=== PATIENT | male | born 1950 | race Caucasian/White ===

== ENCOUNTER 2019-03-13 02:44 | Inpatient (IN) | payer MEDICARE, OTHER ==
[~2019-03-13] VITALS: Ht 190.7 cm; Wt 98.5 kg
[2019-03-13] VITALS (13 sets, daily range): BP systolic 126–170; BP diastolic 52–86; PULSE 44–97; TEMP 97.3–98.6
[~2019-03-13 02:44] MED LIST: BENICAR PO; METFORMIN500 MG PO; PRILOSEC 20MG20 MG PO; ST. JOSEPH81 M2 PO
[2019-03-13] MEDS ORDERED: LIPITOR 10MG10 MG PO (03:26)
[2019-03-13 03:40] LABS: BASO % 0.4 % (0.0-2.0); EOS # 0.1 (0.0-0.7); GRAN # 2.8 (1.4-6.5); GRAN % 56.2 % (42.2-75.2); HEMATOCRIT 38.2 % (42.0-52.0); HEMOGLOBIN 12.9 g/dl (13.5-18.0); LYMPH # 1.7 (1.2-3.4); LYMPH % 34.2 % (20.0-51.0); MEAN CELL VOLUME 85 fl (80.0-100.0); MEAN CORPUSCULAR HEMOGLOBIN 29 pg (27.0-31.0); MEAN CORPUSCULAR HGB CONC 34 g/dl (33.0-37.0); MEAN PLATELET VOLUME 9.8 fl (7.4-10.4); MONO # 0.3 (0.1-0.6); MONO % 6.8 % (1.7-9.3); PLATELET COUNT 150 K/mm3 (130-400); RED BLOOD COUNT 4.51 M/mm3 (4.20-5.60); REDCELL DISTRIBUTION WIDTH-CV 14.3 % (11.5-14.5)
[2019-03-13 03:53] LABS: BILIRUBIN,TOTAL 0.9 mg/dL (0.0-1.0); CALCIUM 9.3 mg/dL (8.4-10.2); CREATININE, serum 0.93 (0.66-1.25); MAGNESIUM 1.8 mg/dL (1.6-2.3); PHOSPHOROUS 3.6 mg/dL (2.5-4.5); POTASSIUM 3.9 mmol/L (3.4-5.0)
[2019-03-13 04:05] LABS: TROPONIN-I 0.017 ng/mL (0.000-0.035)
[2019-03-13 04:23] LABS: TSH w REFLEX 2.65 uIU/mL (0.465-4.680)
--- NOTE | 2019-03-13 07:09 | NUR ---
Report given to SARIKA Fernando
--- NOTE | 2019-03-13 08:46 | NUR ---
PT RESTING IN BED DENIES ANY PAIN AT THIS TIME, DENIES ANY DIZZINESS OR SOA, AT BEDSIDE, PT REPORTS HE IS NOT HUNGRY AT THIS TIME. VSS. ASSESSMENT WNL. CARDIOLOGY CONSULTED WILL ENSURE MD AWARE AND CONTINUE TO MONITOR PT STATUS AND UPDATED PROVIDERS NEEDED.
--- NOTE | 2019-03-13 10:52 | NUR ---
Initial visit; Patient and his thanked [employer] for looking in on him and offering God's blessings.
--- NOTE | 2019-03-13 14:35 | NUR ---
SW attempted to meet with patient to discuss discharge planning. Patient was getting a stress test. SW will follow up at a later time.
--- NOTE | 2019-03-13 15:53 | NUR ---
SW's met with the patient, patient's (Licha #[phone]), and son (Shaji) to discuss discharge plan. The patient lives in [place] with his . He reports independence with ADLs and does not have any DME. The patient's PCP is Dr. Lamin Chapman and he receives his medications at the [facility]. He reports no difficulties obtaining his meds. The patient does not have advanced directives, but he was interested in obtaining a form for DPOA-HC. JOY provided. The patient plans to return home with his upon discharge. No additional needs at this time.
--- NOTE | 2019-03-13 17:33 | NUR ---
ELVIS, MRI OF HEAD W & W/O COMPLETED
--- NOTE | 2019-03-13 21:30 | NUR ---
Patient assessed at this time. Alert and oriented, and able to make needs known. Denies having pain and discomfort. Denies dizziness and lightheadedness. Peripheral IV to right wrist flushed. Peripheral IV to left wrist with NS running at 125 ml/hr. Both sites are without redness, warmth, swelling, and pain. LS CTA. Respirations even and unlabored. Telemetry monitoring in place. Heart rate irregular. Loop recorder to be placed tomorrow. Denies having any questions, needs, or concerns. NPO after midnight. BSAx4. Abdomen soft and non-tender. No edema. Resting in bed watching TV at this time. Call light is within reach. at bedside.
[2019-03-14] VITALS (16 sets, daily range): BP systolic 117–171; BP diastolic 55–104; PULSE 50–72; TEMP 97.9–98.4
--- NOTE | 2019-03-14 06:06 | NUR ---
Patient has been resting in bed. remains at bedside. Voices no questions, needs, or concerns. Reports dizziness has gotten much better. Call light is within reach.
[2019-03-14 07:00] LABS: BASO % 0.3 % (0.0-2.0); EOS # 0.1 (0.0-0.7); EOS % 0.8 % (0-4.0); GRAN # 4.3 (1.4-6.5); GRAN % 71.7 % (42.2-75.2); HEMATOCRIT 38.8 % (42.0-52.0); HEMOGLOBIN 13.4 g/dl (13.5-18.0); LYMPH # 1.3 (1.2-3.4); LYMPH % 21.1 % (20.0-51.0); MEAN CELL VOLUME 83 fl (80.0-100.0); MEAN CORPUSCULAR HEMOGLOBIN 29 pg (27.0-31.0); MEAN CORPUSCULAR HGB CONC 35 g/dl (33.0-37.0); MEAN PLATELET VOLUME 9.7 fl (7.4-10.4); MONO # 0.4 (0.1-0.6); MONO % 5.8 % (1.7-9.3); PLATELET COUNT 164 K/mm3 (130-400); RED BLOOD COUNT 4.66 M/mm3 (4.20-5.60); REDCELL DISTRIBUTION WIDTH-CV 14.1 % (11.5-14.5)
--- NOTE | 2019-03-14 07:00 | NUR ---
Received report from departing nurse Kortney BAUM. Reported with primary nurse Alysha BAUM. Assisting pt with all cares from [phone].
[2019-03-14 07:35] LABS: CALCIUM 8.9 mg/dL (8.4-10.2); CREATININE, serum 0.8 (0.66-1.25); POTASSIUM 3.9 mmol/L (3.4-5.0)
--- NOTE | 2019-03-14 10:32 | NUR ---
Pt assessment completed and charted. Pt has student nurse caring for pt today. Pt laying in bed with at bedside. Pt A&O. Denies dizziness and SOB at this time. pt gets up w/ assistance. LWR INT flushes with no complications. RWR IV w/ NS running with no complications. Denies chest pain, N/V/D. Pt insisting on taking own medications. Discussed with pharmacy, if pt stays, will have medications labeled by pharmacy. No other concerns voiced by patient at this time. Call light within reach.
--- NOTE | 2019-03-14 12:27 | NUR ---
Pt down for heart cath procedure at this time.
--- NOTE | 2019-03-14 12:57 | NUR ---
SEE MERGE DOCUMENTATION FOR MEDICATION ADMINISTRATION TIMES AND INTRA/POST PROCEDURE SEDATION ASSESSMENTS.
--- NOTE | 2019-03-14 13:43 | NUR ---
Reported off with primary nurse Alysha BAUM.
--- NOTE | 2019-03-14 13:56 | NUR ---
Primary nurse was assisted with [phone] patient care by [facility] [employer] student Cain Prince and [facility] instructor Hoda Bush RN-BC.
--- NOTE | 2019-03-14 14:35 | NUR ---
Admitted to ICU 8 via bed from analytical lab technician with RNx2 at side. Awake and alert. Right groin dressing CDI, did have significant hematoma in CL, lateral edge of dressing/incision site sl firm and CL RN states it's improved after holding pressure, medial edge soft. Pulses present, but feet cool to touch. at bedside. Call light at side, denies needs at this time
--- NOTE | 2019-03-14 14:35 | NUR ---
Patient arrives to ICU 8 via bed from Student Counsellor with RNx2 at bedside. Awake and alert, answers questions appropriately. Log rolls to right side for positioning and skin check. Right femoral groin check done with Shweta Connor RN, dressing CDI, did develop hematoma in CL after Angioseal deployed, site sl firm on lateral edge but RN states much improved after manual pressure and massage. Medial side soft, non tender. Will continue to monitor
--- NOTE | 2019-03-14 14:45 | NUR ---
Pt transferred to ICU at this time. Pt with hematoma to right groin following angioseal deployment. Pressure held by live truck technician per MD order. Site stable with hematoma borders marked prior to transfer out of bed laborer. DP pulses +2 on right foot. On arrival to ICU 8, VS monitors connected. VS's WNL limits. Bedside handoff with SARIKA Russell. Right groin site assessed. No change noted to site. Dressing remains dry and intact. No increase in size or characteristics of hematoma. DP pulse remains +2. Pt denies pain or numbness to right leg/foot. All questions answered at this time.
--- NOTE | 2019-03-14 14:54 | NUR ---
Pt transferred to ICU 8 post heart cath procedure. Belongings taken to room in ICU. SARIKA Russell to call for report.
--- NOTE | 2019-03-14 19:55 | NUR ---
Bedside report given to Betsy BAUM. Site checked with on coming RN, lateral edge firmness improved, now only slightly firm but bruising noted to that area. Patient denies needs at this time.
--- NOTE | 2019-03-14 19:55 | NUR ---
Bedside report received from SARIKA Russell. Cath site assessed and remains soft. There is a large bruise forming from hematoma post-procedure.
--- NOTE | 2019-03-14 20:00 | NUR ---
Patient is awake, alert, and oriented x4 watching tv. Patient's at the bedside. Patient has no complaints of pain other than mild headache from the nitro drip. Patient is not requesting any medications for this. Assessment complete. Lungs are clear bilaterally in all vargas. HR is irregular, patient is in sinus dysrhythmia with PAC's, PJC's, and PVC's. Normal S1 and S2 heard. Bowel sounds are active in all quadrants and patient is passing gas. Pulses are strong and palpable in all extremities. Patient has no further needs at this time. Will continue to monitor. Call light within reach.
--- NOTE | 2019-03-14 20:10 | NUR ---
Patient has complaints of nausea at this time. Zofran provided.
[2019-03-15] VITALS: BP 119/78; PULSE 63; TEMP 98.1
--- NOTE | 2019-03-15 | NUR ---
Patient asleep at this time but awakens to name. Vitals obtained and remain stable. Assessment complete with no changes from previous exam. Cath site assessed, remains soft and nontender. Patient has no complaints of pain. Will continue to monitor. Call light within reach.
[2019-03-15 04:00] VITALS: BP 141/68; PULSE 63; TEMP 97.8
[2019-03-15 05:41] LABS: BASO % 0.1 % (0.0-2.0); EOS % 0.4 % (0-4.0); GRAN # 5.7 (1.4-6.5); GRAN % 72.9 % (42.2-75.2); HEMOGLOBIN 12.4 g/dl (13.5-18.0); LYMPH # 1.5 (1.2-3.4); LYMPH % 18.6 % (20.0-51.0); MEAN CELL VOLUME 84 fl (80.0-100.0); MEAN CORPUSCULAR HEMOGLOBIN 29 pg (27.0-31.0); MEAN CORPUSCULAR HGB CONC 35 g/dl (33.0-37.0); MEAN PLATELET VOLUME 9.6 fl (7.4-10.4); MONO # 0.6 (0.1-0.6); MONO % 7.6 % (1.7-9.3); PLATELET COUNT 152 K/mm3 (130-400); RED BLOOD COUNT 4.27 M/mm3 (4.20-5.60); REDCELL DISTRIBUTION WIDTH-CV 14.3 % (11.5-14.5)
[2019-03-15 05:42] LABS: HEMATOCRIT 35.9 % (42.0-52.0)
[2019-03-15 05:54] LABS: CALCIUM 8.5 mg/dL (8.4-10.2); CREATININE, serum 0.81 (0.66-1.25); POTASSIUM 3.8 mmol/L (3.4-5.0)
--- NOTE | 2019-03-15 05:56 | NUR ---
Patient sleeping, but awakens to name. No complaints of pain, just some tenderness when cath site is touched. Cath site remains clean and dry with no hematoma. Vitals obtained and remain stable. Assessment complete with no changes from previous exam. Patient has no further needs at this time. Will continue to monitor. Call light within reach.
--- NOTE | 2019-03-15 07:10 | NUR ---
Bedside report given to SARIKA Negro and Stas RN
[2019-03-15 08:00] VITALS: BP 135/82; BP 141/70; PULSE 52; TEMP 97.8
--- NOTE | 2019-03-15 10:04 | NUR ---
Assisted to sitting. Tolerates without issue. Reports mild nausea and headache. Tylenol given.
[2019-03-15] MEDS ORDERED: LIPITOR 80MG80 MG PO (11:13)
[2019-03-15] MEDS ORDERED: PLAVIX 75MG TAB75 MG PO (11:13)
[2019-03-15] MEDS ORDERED: TOPROL XL 25MG25 MG PO (11:14)
[2019-03-15] MEDS ORDERED: NITROSTAT0.4 MG/TAB SL (11:15)
--- NOTE | 2019-03-15 11:26 | NUR ---
The patients was present. We talked and I provided spiritual care and prayed with the family.
--- NOTE | 2019-03-15 14:00 | NUR ---
All discharge instructions reviewed and questions addressed. Pt and accompanied to POV. Packet provided. Belongings returned.
--- NOTE | 2019-03-15 17:04 | NUR ---
Plan:To return home with [phone]. Patient also wants his oldest son Shaji De La Rosa on [phone]. Patient resides in [facility]. SM reports that he has a DPOA form to fill out later. Patient reports that will transport him home. Assess:SW's met with patient with present. Patient gave permission to discuss information in front of . SM denied utilizing DME, however reports that he is going to recieve a heart monitor in the mail. Patient reports that his PCP is Dr. Mcleod, and he does not have any upcoming appointments. Patient denies a need for HHC. Action:No additional concerns identified. Patient was educated about community resources and supports.
== END 2019-03-15 14:03 | disposition home or self-care (01) | DRG 251 ==
LOC: COL.ER 02:44 → MEDICAL 04:29 → ICU 03-14 14:51
PROVIDERS: Emergency Medicine; Physician Assistant
PROC: 02703ZZ Dilation of Coronary Artery, One Artery, Percutaneous Approach (ICD-10-PCS; principal; 2019-03-14)
PROC: 4A023N7 Measurement of Cardiac Sampling and Pressure, Left Heart, Percutaneous Approach (ICD-10-PCS; 2019-03-14)
PROC: B2111ZZ Fluoroscopy of Multiple Coronary Arteries using Low Osmolar Contrast (ICD-10-PCS; 2019-03-14)
DX: I25.10 Atherosclerotic heart disease of native coronary artery without angina pectoris (principal); I25.82 Chronic total occlusion of coronary artery; I10 Essential (primary) hypertension; R00.8 Other abnormalities of heart beat; D64.9 Anemia, unspecified; E11.42 Type 2 diabetes mellitus with diabetic polyneuropathy; E78.5 Hyperlipidemia, unspecified; K21.9 Gastro-esophageal reflux disease without esophagitis; R42 Dizziness and giddiness; Z79.82 Long term (current) use of aspirin; Z79.84 Long term (current) use of oral hypoglycemic drugs
CPT/HCPCS: 99232-AI; A9500; A9585; G0378; J0583; J1644; J2250; J2785; J3010; J7030; Q9967

== ENCOUNTER 2019-03-16 11:51 | Emergency (ER) | payer OTHER ==
[~2019-03-16] VITALS: Ht 190.5 cm; Wt 97.7 kg
[~2019-03-16 11:51] MED LIST changes: +LIPITOR 10MG10 MG PO; +LIPITOR 80MG80 MG PO; +NITROSTAT0.4 MG/TAB SL; +PLAVIX 75MG TAB75 MG PO; +TOPROL XL 25MG25 MG PO
[2019-03-16 12:05] VITALS: BP 142/79; TEMP 98.4
[2019-03-16 12:49] VITALS: PULSE 50
== END 2019-03-16 12:50 | disposition home or self-care (01) ==
LOC: COL.ER 11:51
DX: S30.1XXA Contusion of abdominal wall, initial encounter (principal); Z79.02 Long term (current) use of antithrombotics/antiplatelets; I25.10 Atherosclerotic heart disease of native coronary artery without angina pectoris; Z79.82 Long term (current) use of aspirin

== ENCOUNTER 2019-06-11 15:29 | Outpatient (RCR) | payer OTHER | END 2019-06-13 12:23 | disposition home or self-care (01) | LOC: COL.CR 15:29 | DX: Z48.812 Encounter for surgical aftercare following surgery on the circulatory system (principal); Z95.5 Presence of coronary angioplasty implant and graft; I25.10 Atherosclerotic heart disease of native coronary artery without angina pectoris ==

== ENCOUNTER 2019-08-18 11:41 | Outpatient (RCR) | payer SELFPAY | END 2019-09-09 | disposition home or self-care (01) | LOC: COL.CR | DX: Z02.89 Encounter for other administrative examinations (principal) ==

== ENCOUNTER 2021-06-03 06:31 | Day surgery (SDC) | payer OTHER ==
[~2021-06-03] VITALS: Ht 190.5 cm; Wt 98.3 kg
[2021-06-03] MEDS ORDERED: ELIQUIS 5MG PO (06:53)
[2021-06-03] MEDS ORDERED: ASPIRIN 81M81 MG/TA2 PO (06:54)
[2021-06-03] MEDS ORDERED: LIPITOR 80MG80 MG PO (06:54)
[2021-06-03] MEDS ORDERED: TOPROL XL 25MG25 MG PO (06:54)
[2021-06-03] MEDS ORDERED: PEPCID 20MG TAB20 MG PO (06:55)
[2021-06-03 07:09] VITALS: BP 124/86; PULSE 61; TEMP 96.9
[2021-06-03 08:10] VITALS: BP 101/58; PULSE 69
--- NOTE | 2021-06-03 08:10 | NUR ---
Patient returns to bay 3 per cart and is awake and alert. Transfers from cart to recliner with one person assist. IV fluids infusing. Spouse in room. Denies pain or nausea. Given coffee to drink.
[2021-06-03 08:25] VITALS: BP 101/77; PULSE 60
--- NOTE | 2021-06-03 08:25 | NUR ---
Sipping on coffee and denies nausea.
[2021-06-03 08:40] VITALS: BP 113/73; PULSE 69
--- NOTE | 2021-06-03 08:40 | NUR ---
IV discontinued and site is free of redness. Dr. Boogie here and all questions answered.
--- NOTE | 2021-06-03 08:50 | NUR ---
Patient dressed. Given dismissal instructions and voices understanding of these. Patient dismissed to home driven by spouse and taken to the front door per wheelchair and assisted into vehicle with instructions in hand.
== END 2021-06-03 08:50 | disposition home or self-care (01) ==
LOC: SDCO 06:31
DX: Z12.11 Encounter for screening for malignant neoplasm of colon (principal); Z80.0 Family history of malignant neoplasm of digestive organs; K57.30 Diverticulosis of large intestine without perforation or abscess without bleeding; E78.5 Hyperlipidemia, unspecified; I25.10 Atherosclerotic heart disease of native coronary artery without angina pectoris; I10 Essential (primary) hypertension; I48.91 Unspecified atrial fibrillation; Z79.899 Other long term (current) drug therapy; Z79.01 Long term (current) use of anticoagulants; Z79.82 Long term (current) use of aspirin; Z95.818 Presence of other cardiac implants and grafts
CPT/HCPCS: G0105; J2704; J7030

== ENCOUNTER 2021-08-08 09:18 | Inpatient (IN) | payer OTHER, MEDICARE ==
[~2021-08-08] VITALS: Ht 190.7 cm; Wt 100.0 kg
[~2021-08-08 09:18] MED LIST changes: +ASPIRIN 81M81 MG/TA2 PO; +ELIQUIS 5MG PO; +PEPCID 20MG TAB20 MG PO
[2021-08-30] VITALS (12 sets, daily range): BP systolic 99–133; BP diastolic 58–81; PULSE 56–88; TEMP 97.4–98.6
--- NOTE | 2021-08-30 11:20 | NUR ---
PATIENT ADMITED INTO ROOM 349 POST OP. A&O. VSS. DENIES PAIN OR N/V. PATIENT ONLY REPORTS PRESSURE AT DARNELL. DARNELL TO DD WITH PINK COLORED URINE NOTED, NO CLOTS. IV FLUIDS INFUSING INTO LEFT WRIST. ERAS PROTOCOL, EDUCATION GIVEN TO PATIENT & . ABD LAP SITES X6 ARE WELL APPROXIMATED WITH GLUED CLOSURE. ABD IS SLIGHTLY DISTENDED POST OP. HYPO BOWL SOUNDS. HEAD TO TOE ASSESSMENT COMPLETE. SCD'S TO BLE. ORIENTED TO ROOM. CALL LIGHT IN REACH.
--- NOTE | 2021-08-30 21:15 | NUR ---
Pt. sitting up in bed. PT. is A&Ox3, assessment complete. IV to lt. wrist patent. IV fluid infusing per orders. amdaor catheter to DD, clear jerel urine noted. Pt. denies pain or other needs, call light within reach.
[2021-08-31 04:13] VITALS: BP 92/50; PULSE 63; TEMP 98.3
[2021-08-31 06:24] LABS: HEMATOCRIT 33.9 % (42.0-52.0)
[2021-08-31 06:40] VITALS: BP 96/54; PULSE 70; TEMP 98.4
[2021-08-31 06:56] LABS: CALCIUM 7.8 mg/dL (8.4-10.2); CREATININE, serum 0.88 mg/dL (0.72-1.25); POTASSIUM 4.1 mmol/L (3.5-4.5)
--- NOTE | 2021-08-31 07:25 | NUR ---
IVF RESTARTED, HAD BEEN SALINE LOCKED OVERNIGHT. PT IN LAYING IN BED, HAS NOT BEEN UP YET. PT STATES THAT HE DOES NOT HAVE PAIN EXCEPT FOR MILD GAS PAINS, HAS BEEN PASSING GAS. PT IS ENCOURAGED TO WALK, GETS OUT OF BED WITH 1 ASSIST, WALKS TO DOOR ET BACK TO CHAIR. PT'S GAIT IS UNSTEADY ET SLOW, PT STATES THAT HE FEELS "WOOZY". DARNELL CATHETER DRAINING YELLOW URINE. PT DENIES OTHER NEEDS. CALL LIGHT WITHIN REACH.
--- NOTE | 2021-08-31 09:19 | NUR ---
Odd Piece Checker met with patient to discuss discharge planning. Patient's , Licha (ph#[phone]) is at bedside. Patient lives in [place] with Licha and sees Dr. Chapman for primary care. Patient obtains medications from [facility] [address] with no difficulties. Patient does not use any DME and is independent with ADLS. Patient states he has completed DPOA-HC which designates his Licha then his two sons, Jose F and Ashish. Patient plans to return home at time of discharge. Discharge Plan: Home
[2021-08-31 10:45] VITALS: BP 100/57; PULSE 71; TEMP 97.9
--- NOTE | 2021-08-31 10:58 | NUR ---
First visit from the workers compensation attorney. No needs right now.
[2021-08-31 16:08] VITALS: BP 116/52; PULSE 67; TEMP 98.1
--- NOTE | 2021-08-31 18:17 | NUR ---
PT'S CONDITION IMPROVED FROM THIS MORNING, PT DENIES FEELING LIGHTHEADED OR "WOOZY", DENIES NAUSEA OR PAIN. IVF INFUSING ET RATE HAS BEEN DECREASED TO 60 ML/HR PER ORDERS. IVF ARE ORDERED TO RUN CONTINUOUSLY. SPOUSE IS @ BEDSIDE. PT IS ASSISTED TO AMBULATE WITH 2 ASSIST ET GAITBELT. GAIT IS SLOW BUT STEADY. PT AMBULATES TO NURSES STATION ET BACK TO ROOM. PT IS ENCOURAGED TO AMBULATE MORE DURING NIGHT WHILE AWAKE, VERBALIZES UNDERSTANDING. PT DENIES OTHER NEEDS. CALL LIGHT WITHIN REACH.
[2021-08-31 19:52] VITALS: BP 104/66; PULSE 75; TEMP 97.3
--- NOTE | 2021-08-31 20:09 | NUR ---
PT AWAKE, ALERT AND ORIENTED X4. HAS IVF INFUSING TO LT WRIST WITHOUT REDNESS OR SWELLING. DARNELL TO BSD WITH YELLOW URINE. ASSISTED TO BATHROOM, PT THINKS HE NEEDS TO HAVE BM. GAIT STEADY. WANTS TO WALK AFTER USING BATHROOM. HS MEDS GIVEN.
--- NOTE | 2021-08-31 20:20 | NUR ---
AMBULATED IN HALLWAY WITH STAFF, STEADY GAIT NOTED. BACK TO BED WITHOUT PROBLEM.
[2021-09-01 00:33] VITALS: BP 122/77; PULSE 74; TEMP 98.3
--- NOTE | 2021-09-01 02:15 | NUR ---
PT AWAKE, REPORTS HIS "REFLUX" IS BOTHERING HIM. DR POTTER DIDN'T ORDER HIS PEPCID. ALSO COMPLAINS OF NOT SLEEPING D/T ABD DISCOMFORT. MEDICATED WITH ZOFRAN 4MG IVP NOW AND OXYCODONE 5MG PO FOR DISCOMFORT.
[2021-09-01 03:56] VITALS: BP 112/54; PULSE 101; TEMP 97.9
--- NOTE | 2021-09-01 04:00 | NUR ---
RESTING WELL AFTER MEDS GIVEN.
[2021-09-01 06:09] LABS: HEMOGLOBIN 10.2 g/dl (13.5-18.0)
[2021-09-01 06:10] LABS: HEMATOCRIT 28.1 % (42.0-52.0)
[2021-09-01 08:00] VITALS: BP 109/60; PULSE 71; TEMP 98
--- NOTE | 2021-09-01 10:00 | NUR ---
PT ET SPOUSE GIVEN DISCHARGE INSTRUCTIONS. EDUCATION ALSO GIVEN ON HOW TO CARE FOR DARNELL CATHETER. PT ET SPOUSE DEMONSTRATE UNDERSTANDING OF TEACHING ET DENY ANY QUESTIONS. DARNELL CATHETER BAG IS CHANGED TO A LEG BAG. SUPPLIES TO CARE FOR CATHETER ARE SENT HOME WITH PT. PERIPHERAL IV IS DCED, CATHETER TIP INTACT. PT IS ALLOWED TO GET DRESSED FOR DISCHARGE.
--- NOTE | 2021-09-01 10:21 | NUR ---
PT IS DISCHARGED TO HOME, LEAVES FLOOR VIA WC PUSHED BY PATRICK PAUL, ACCOMPANIED BY SPOUSE.
== END 2021-09-01 10:21 | disposition home or self-care (01) | DRG 708 ==
LOC: INPTSU 08-30 05:49 → SURG 08-30 05:49
PROVIDERS: ADMIT Urology
PROC: 8E0W4CZ Robotic Assisted Procedure of Trunk Region, Percutaneous Endoscopic Approach (ICD-10-PCS; 2021-08-30)
PROC: 0VT04ZZ Resection of Prostate, Percutaneous Endoscopic Approach (ICD-10-PCS; principal; 2021-08-30 07:30)
DX: C61 Malignant neoplasm of prostate (principal); K21.9 Gastro-esophageal reflux disease without esophagitis; E86.1 Hypovolemia; I95.9 Hypotension, unspecified; Z23 Encounter for immunization
CPT/HCPCS: A4314; A9284; J0690; J1885; J2370; J2405; J2704; J3010; J7030; J7120